=== PATIENT | female | born 1980 | race Caucasian/White ===

== ENCOUNTER → 2019-05-25 10:53 | Outpatient (BNVA) | payer OTHER, SELFPAY | PROVIDERS: PCP Electrodiagnostic Medicine; Visit Provider Family Medicine | DX: R50.9 Fever, unspecified (principal); R39.9 Unspecified symptoms and signs involving the genitourinary system; J98.8 Other specified respiratory disorders; B97.89 Other viral agents as the cause of diseases classified elsewhere | CPT/HCPCS: 81003; 87804 ==

== ENCOUNTER → 2020-01-01 11:34 | Outpatient (BNVA) | payer OTHER, SELFPAY | PROVIDERS: PCP Electrodiagnostic Medicine; Visit Provider Nurse Practitioner | DX: R35.0 Frequency of micturition (principal) | CPT/HCPCS: 81000 ==